=== PATIENT | male | born 1990 | race Caucasian/White ===

== ENCOUNTER → 2019-09-27 | Outpatient (CLI) | payer OTHER ==
--- NOTE | 2019-09-27 09:51 | REP ---
Clinical: Trauma. Technique: AP, lateral, bilateral oblique views right hand . Findings: The osseous structures and joint spaces are intact and normal. There is no evidence for acute fracture or dislocation. Surrounding soft tissues are unremarkable. No subcutaneous emphysema or radiodense foreign body. Impression: No acute fracture or dislocation. Electronically Signed by Eloy Bruno MD 09/27/2019 09:43 A
== END ==
LOC: M RAD 08:35
PROVIDERS: ATTEND Surgery
DX: M25.541 Pain in joints of right hand (principal)